=== PATIENT | female | born 1945 | race Caucasian/White ===

== ENCOUNTER 2016-11-24 11:08 | Day surgery (SDC) | payer MEDICARE, MEDICAID ==
[~2016-11-24 11:08] MED LIST: Acetaminophen TAB* 325 MG PO PRN; Buffered Lidocaine 0.9% SYRIN* 5 ML/SYR SYRINGE INTRADERM ONE
[2016-11-24] MEDS ORDERED: Midazolam* 1 MG/ML 2 ML VIAL (2 MG) ONE (13:00)
[2016-11-24] MEDS ORDERED: fentaNYL* 50 MCG/ML 2 ML VIAL (100 MCG VIAL) ONE (13:19)
[2016-11-24 13:52] VITALS: BP 131/78
[2016-11-24] MEDS ORDERED: Neomycin/Polymy/Dex OPTH.SUSP* MAXITROL 0.1% 5 ML ONE (14:47)
[2016-11-24] MEDS ORDERED: Flurbiprofen 0.03% OPTH.SOL* 2.5 ML BTL ONE (14:47)
[2016-11-24] MEDS ORDERED: Cyclopentolate 1% OPTH.SOL* 2 ML BTL ONE (14:47)
[2016-11-24] MEDS ORDERED: Lidocaine 1% MPF* 2 ML VIAL ONE (14:47)
[2016-11-24] MEDS ORDERED: Phenylephrine 2.5% OPTH.SOL* 2 ML BTL ONE (14:47)
[2016-11-24] MEDS ORDERED: Lidocaine 2% EPI 1:200000 MPF* 20 ML VIAL ONE (14:47)
[2016-11-24] MEDS ORDERED: Povidone Iodine 5% OPTH* 30 ML BTL ONE (14:47)
[2016-11-24] MEDS ORDERED: acetaZOLAMIDE TAB* 250 MG ONE (14:47)
[2016-11-24] MEDS ORDERED: Proparacaine 0.5% OPHTH.SOL* 15 ML BTL ONE (14:48)
[2016-11-24] MEDS ORDERED: Buffered Lidocaine 0.9% SYRIN* 5 ML/SYR SYRINGE ONE (14:48)
--- NOTE | 2016-11-25 11:10 | OP ---
DATE OF OPERATION: 11/24/16 - [facility] DATE OF : 49 SURGEON: Fernie Beltrán M.D. PREOPERATIVE DIAGNOSIS: Cataract, right eye. POSTOPERATIVE DIAGNOSIS: Cataract, right eye. OPERATIVE PROCEDURE: Phacoemulsification, right eye with IOL. DESCRIPTION OF PROCEDURE: The patient was brought to the operating room after being given 1/2% Alcaine with epinephrine drops in the preoperative area. The eye was prepped and draped in the usual sterile fashion. Sterile drape and eyelid speculum were placed. Again, topical 1/2% Alcaine with epinephrine was given. A paracentesis incision was made at the 9 o'clock position with the No.75 blade. Clear cornea incision 2.2 x 2.2-mm was created at the 12 o'clock position starting at the anterior limbus using the 2.2-mm keratome. The anterior chamber was irrigated with 0.4 mL of 1% non-preservative intracameral lidocaine and filled with DisCoVisc. A capsulorrhexis was completed using the cystotome and the Utrata forceps. Hydrodissection was performed with balanced salt solution. The lens nucleus was removed with the Phacoemulsification handpiece without incident. Cortex was removed with the irrigation-aspiration handpiece. The capsular bag was re-inflated using DisCoVisc and an SN60WF 18.5 implant was inserted with the shooter. The irrigation-aspiration handpiece was used to remove all residual DisCoVisc. The eye was refilled with balanced salt solution and the wound checked and found to be watertight. Topical Maxitrol drops were given. [id number]/[facility] #: [id number] MTDD
== END 2016-11-24 14:13 | disposition home or self-care (01) ==
LOC: OREAST 11:08
PROVIDERS: ATTEND Specialist
DX: H25.811 Combined forms of age-related cataract, right eye (principal); H40.013 Open angle with borderline findings, low risk, bilateral; E11.9 Type 2 diabetes mellitus without complications; F17.210 Nicotine dependence, cigarettes, uncomplicated; I10 Essential (primary) hypertension
CPT/HCPCS: A9270-GY; J2250; J3010; V2632

== ENCOUNTER 2016-12-01 07:10 | Day surgery (SDC) | payer MEDICARE, MEDICAID ==
[2016-12-01] MEDS ORDERED: Lidocaine 1% MPF* 2 ML VIAL ONE (07:26)
[2016-12-01] MEDS ORDERED: Flurbiprofen 0.03% OPTH.SOL* 2.5 ML BTL ONE (07:26)
[2016-12-01] MEDS ORDERED: Phenylephrine 2.5% OPTH.SOL* 2 ML BTL ONE (07:26)
[2016-12-01] MEDS ORDERED: Cyclopentolate 1% OPTH.SOL* 2 ML BTL ONE (07:26)
[2016-12-01] MEDS ORDERED: acetaZOLAMIDE TAB* 250 MG ONE (07:26)
[2016-12-01] MEDS ORDERED: Proparacaine 0.5% OPHTH.SOL* 15 ML BTL ONE (07:26)
[2016-12-01] MEDS ORDERED: Povidone Iodine 5% OPTH* 30 ML BTL ONE (07:26)
[2016-12-01] MEDS ORDERED: Neomycin/Polymy/Dex OPTH.SUSP* MAXITROL 0.1% 5 ML ONE (07:26)
[2016-12-01] MEDS ORDERED: Buffered Lidocaine 0.9% SYRIN* 5 ML/SYR SYRINGE ONE (07:26)
[2016-12-01] MEDS ORDERED: Midazolam* 1 MG/ML 5 ML VIAL (5 MG) ONE (08:41)
[2016-12-01] MEDS ORDERED: fentaNYL* 50 MCG/ML 2 ML VIAL (100 MCG VIAL) ONE (08:51)
[2016-12-01 09:57] VITALS: BP 159/94
--- NOTE | 2016-12-01 16:37 | OP ---
DATE OF OPERATION: 12/01/16 - [facility] DATE OF : 49 SURGEON: Fernie Beltrán M.D. PREOPERATIVE DIAGNOSIS: Cataract, left eye. POSTOPERATIVE DIAGNOSIS: Cataract, left eye. OPERATIVE PROCEDURE: Phacoemulsification, left eye, with IOL. DESCRIPTION OF PROCEDURE: The patient was brought to the operating room after being given 1/2% Alcaine with epinephrine drops in the preoperative area. The eye was prepped and draped in the usual sterile fashion. Sterile drape and eyelid speculum were placed. Again, topical 1/2% Alcaine with epinephrine was given. A paracentesis incision was made at the 3 o'clock position with the No.75 blade. Clear cornea incision 2.2 x 2.2-mm was created at the 6 o'clock position starting at the anterior limbus using the 2.2-mm keratome. The anterior chamber was irrigated with 0.4 mL of 1% non-preservative intracameral lidocaine and filled with DisCoVisc. A capsulorrhexis was completed using the cystotome and the Utrata forceps. Hydrodissection was performed with balanced salt solution. The lens nucleus was removed with the Phacoemulsification handpiece without incident. Cortex was removed with the irrigation-aspiration handpiece. The capsular bag was re-inflated using DisCoVisc and an SN60WF 19.5 implant was inserted with the shooter. The irrigation-aspiration handpiece was used to remove all residual DisCoVisc. The eye was refilled with balanced salt solution and the wound checked and found to be watertight. Topical Maxitrol drops were given. [id number]/[facility] #: [id number] MTDD
== END 2016-12-01 09:53 | disposition home or self-care (01) ==
LOC: OREAST 07:10
PROVIDERS: ATTEND Specialist
DX: H25.812 Combined forms of age-related cataract, left eye (principal); H40.013 Open angle with borderline findings, low risk, bilateral; E11.9 Type 2 diabetes mellitus without complications; Z79.84 Long term (current) use of oral hypoglycemic drugs; Z72.0 Tobacco use
CPT/HCPCS: A9270-GY; J2250; J3010; V2632

== ENCOUNTER 2019-04-05 10:59 | Observation (INO) | payer MEDICARE, MEDICAID ==
[2019-04-05] MEDS ORDERED: NS 0.9% 1000 ML** 1,000 ML IV ONE (11:02)
--- NOTE | 2019-04-05 11:13 | ED ---
Neurological HPI - HPI Summary HPI Summary: This patient is a 74 year old F with a history of DM, tobacco use, and Pearce palsy presenting to ED with a chief complaint of right side facial droop and lateral right eye deviation since yesterday. Per patients sister, when patient woke up this morning at 0930, she had the right eye wander. Patients sister states that the patient had this yesterday, but not as bad. Patients sister reports that the patient is confused, which is not her baseline. For example, the patient said she hasnt been to a doctor in ages, which is not true per the patients sister. Patient is also shaky, but she is diabetic and has not eaten anything today. Patient reports tingling in the right eye. Patient states she does not remember how this feels compared to her previous Pearce palsy as it was many years ago. She denies numbness, weakness, and tingling in the bilateral upper and lower extremities. Patient denies normally having trouble with her eyes. The patient rates the pain 0/10 in severity. Symptoms aggravated by nothing. Symptoms alleviated by nothing. Ebenezer avila called at 1059. Dr. Bourne at bedside at 1100. - History of Current Complaint Stated Complaint: POSS STROKE PER PT DAUGHTER Hx Obtained From: Patient, Family/Cooking Chef - Sister Hx Last Menstrual Period: n/a Onset/Duration: Gradual Onset, Started days ago - Yesterday, Still Present Timing: Constant Onset Severity: Mild Current Severity: Mild Pain Intensity: 0 Pain Scale Used: 0-10 Numeric Character: Other: - Lateral right eye deviation Aggravating: Nothing Alleviating: Nothing Associated Signs and Symptoms: Positive: Confusion - Allergy/Home Medications Allergies/Adverse Reactions: Allergies Allergy/AdvReac Type Severity Reaction Status Date / Time codeine Allergy GI Upset Verified 04/05/19 11:32 diazepam [From Valium] Allergy GI Upset Verified 04/05/19 11:32 sulfamethoxazole Allergy Rash Verified 04/05/19 11:32 [From Bactrim] trimethoprim [From Bactrim] Allergy Rash Verified 04/05/19 11:32 Home Medications: Home Medications Nateglinide 1 tab PO TID 04/05/19 [History Confirmed 04/05/19] Umeclidin/Vilant 62.5 MDI(NF) [ANORO 62.5/25 Ellipta DEVICE (NF)] 1 inh INH DAILY 04/05/19 [History Confirmed 04/05/19] amLODIPine TAB* [Norvasc 5 mg TAB*] 10 mg PO DAILY 04/05/19 [History Confirmed 04/05/19] PMH/Surg Hx/FS Hx/Imm Hx Endocrine/Hematology History: Reports: Hx Diabetes - type 2 Cardiovascular History: Reports: Hx Hypertension Respiratory History: Reports: Other Respiratory Problems/Disorders - Emphysema GI History: Reports: Hx Diverticulosis, Hx Hiatal Hernia, Other GI Disorders - diverticulitis - none now History: Reports: Other Problems/Disorders - neurogenic bladder Musculoskeletal History: Reports: Hx Arthritis - RA, osteoarthritis Sensory History: Reports: Hx Cataracts - bilat, Hx Contacts or Glasses - glasses , Hx Glaucoma - borderline Denies: Hx Hearing Aid Opthamlomology History: Reports: Hx Cataracts - bilat, Hx Contacts or Glasses - glasses, Hx Glaucoma - borderline Neurological History: Reports: Hx Nerve Disease - diabetic neuropathy feet, Other Neuro Impairments/Disorders - schizophrenia, champagne's palsy Psychiatric History: Reports: Hx Depression - Cancer History Hx Chemotherapy: No - Surgical History Surgery Procedure, Year, and Place: HERNIA REPAIR x2 , PARTIAL HYSTERECTOMY, CHOLECYSTECOMY Hx Anesthesia Reactions: No - Family History Known Family History: Positive: Other - Cancer - Social History Alcohol Use: None Hx Substance Use: No Substance Use Type: Reports: None Hx Tobacco Use: Yes Smoking Status (MU): Heavy Every Day Tobacco Smoker - 1.5ppd Type: Cigarettes Amount Used/How Often: smoked since 20 years old Review of Systems Eyes: Other - Lateral right eye deviation and tingling Neurological: Other - Confusion, Right-side facial droop Negative: Weakness, Numbness All Other Systems Reviewed And Are Negative: Yes Physical Exam - Summary Physical Exam Summary: Constitutional: Well-developed, Well-nourished, Alert. (-) Distressed Skin: Warm, Dry HENT: Normocephalic; Atraumatic, R eyelid ptosis Eyes: Right eye oculomotor nerve palsy, PERRL. Neck: Musculoskeletal ROM normal neck. (-) JVD, (-) Nuchal rigidity Cardio: Rhythm regular, rate normal, Heart sounds normal; Intact distal pulses; Radial pulses are 2+ and symmetric. (-) Murmur Pulmonary/Chest wall: Effort normal. (-) Respiratory distress, (-) Wheezes, (-) Rales Abd: Soft. (-) Tenderness, (-) Distension, (-) Guarding, (-) Rebound Musculoskeletal: (-) Edema Lymph: (-) Cervical adenopathy Neuro: Alert, Oriented x3, Strength normal, Cranial nerves II-XII (aside from CN III) are grossly intact. SILT, Strength 5/5 BUE and BLE, (-) Dysmetria, (-) Nystagmus. Gait deferred NIH: 1 GCS: 15 Psych: Mood and affect Normal Triage Information Reviewed: Yes Vital Signs On Initial Exam: Initial Vitals Resp BP 29 138/75 04/05/19 11:33 04/05/19 11:33 Vital Signs Reviewed: Yes Procedures - Sedation Patient Received Moderate/Deep Sedation with Procedure: No Diagnostics - Laboratory Result Diagrams: 04/05/19 11:21 04/05/19 11:21 Lab Statement: Any lab studies that have been ordered have been reviewed, and results considered in the medical decision making process. - Radiology CXR Radiology Interpretation Completed By: Radiologist Summary of Radiographic Findings: NO ACTIVE CARDIOPULMONARY DISEASE IS NOTED. Dr. Bourne has reviewed this radiology report. - CT Brain CT CT Interpretation Completed By: Radiologist Summary of CT Findings: No definite intracranial mass or hemorrhage is noted. No significant change is noted since October 08, 2010. Dr. Bourne has reviewed this radiology report. Head/Neck CTA CT Interpretation Completed By: Radiologist Summary of CT Findings: Atherosclerosis at the carotid bulb bilaterally however no significant. stenosis is noted. No evidence of large vessel occlusion. No aneurysmal dilatation or branch occlusion is identified. Dr. Bourne has reviewed this radiology report. Brain CT Interpretation Completed By: Radiologist Summary of CT Findings: No definite intracranial mass or hemorrhage is noted. No significant change is noted since October 08, 2010. Dr. Bourne has reviewed this radiology report. - EKG 1319 Cardiac Rate: NL - 86 BPM EKG Rhythm: Sinus Rhythm Summary of EKG Findings: EKG at 1319 revealed NSR at 86 BPM with T-wave flattening in lead III. Dr. Bourne has reviewed and interpreted this EKG. NIH Scale - NIH Scale Level of Consciousness: Alert/Keenly Responsive Ask Patient the Month and His/Her Age: Both Correct Ask Pt to Open/Close Eyes and Sales Service Supervisor/Release Non-Paretic Hand: Both Correctly Best Gaze (Only Horizontal Eye Movement): Partial Gaze Palsy Visual Field Testing: No Visual Loss Facial Paresis-Pt to Smile & Close Eyes or Grimace Symmetry: Normal/Symmetrical Motor Function - Right Arm: No Drift-Holds 10 Seconds Motor Function - Left Arm: No Drift-Holds 10 Seconds Motor Function - Right Leg: No Drift-Holds 10 Seconds Motor Function - Left Leg: No Drift-Holds 10 Seconds Limb Ataxia-Must be out of Proportion to Weakness Present: Absent Sensory (Use Pinprick to Test Arms/Legs/Trunk/Face): Normal Best Language (Describe Picture, Name Items): No Aphasia Dysarthria (Read Several Words): Normal Extinction and Inattention: No Abnormality Total Score: 1 Re-Evaluation - Re-Evaluation First Eval Re-Evaluation Time: 13:10 Comment: Discussed results with patient. Patient will be admitted to [facility] with dx of cranial nerve III palsy and HTN. Patient understands and agrees with this plan. Course/Dx - Course Course Of Treatment: 74-year-old female with history of diabetes, schizophrenia , Champagne's palsy presents with lateral R eye deviation as well as concern for altered mental status. - NIH stroke scale of 1 for minor gaze palsy, ptosis of R eye. Concern for CN III palsy. CT non con negative, CTA ordered to r/o aneurysm. Plan for permissive HTN, further stroke w/u. - patient AAOx3 on exam no AMS. - [facility] stroke attending consulted. - Diagnoses Provider Diagnoses: Cranial nerve III palsy, Hypertension During the Visit The Following Alert/Code Occurred: Code Green - Physician Notifications Discussed Care Of Patient With: Chapis Ortiz Time Discussed With Above Provider: 11:21 Instructed by Provider To: Other - Radiologist, Dr. Ortiz, called to report negative brain CT. At 1132, discussed patient case with Dr. Michel, neurologist at [place], who agrees it is a cranial nerve III palsy, recommends CTA and stroke work up. At 1311 discussed patient case with Dr. Bonilla, hospitalist, who accepted the patient for admission to [facility]. - Critical Care Time Critical Care Time: 30-74 min - Upon my evaluation, this patient had a high probability of imminent or life-threatening deterioration due to CVA which required my direct attention, intervention, and personal management. I have personally provided 30 minutes of critical care time exclusive of time spent on separately billable procedures. Time includes review of laboratory data, radiology results, discussion with consultants, and monitoring for potential decompensation. Interventions were performed as documented above. Discharge ED - Sign-Out/Discharge Documenting (check all that apply): Patient Departure - Admit - Discharge Plan Condition: Fair Disposition: ADMITTED TO [facility] - Billing Disposition and Condition Condition: FAIR Disposition: Admitted to [facility] - Attestation Statements Document Initiated by Scribe: Yes Documenting Scribe: Maxi Marroquin Provider For Whom Lienibe is Documenting (Include Credential): Kee Bourne MD Scribe Attestation: Maxi Adrian, scribed for Kee Bourne MD on 04/05/19 at 1421. Scribe Documentation Reviewed: Yes Provider Attestation: The documentation as recorded by the scribeMaxi accurately reflects the service I personally performed and the decisions made by Kee chen MD Status of Scribe Document: Viewed
[2019-04-05 11:31] LABS: ABS Basophils 0.1 10^3/ul (0-0.2); ABS Monocytes 0.5 10^3/ul (0-0.8); ABS Neutrophils 6.9 10^3/ul (1.5-7.7); Eosinophil % 0.3 %; Hematocrit 37 % (35-47); Hemoglobin 12.4 g/dL (12.0-16.0); Lymphocyte % 11.9 %; Mean Corpuscular HGB Conc 34 g/dL (31-36); Mean Corpuscular Hemoglobin 27 pg (27-31); Mean Corpuscular Volume 81 fL (80-97); Mean Platelet Volume 6.8 fL (7.4-10.4); Platelet Count 444 10^3/uL (150-450); Red Blood Count 4.53 10^6 /uL (3.70-4.87); Red Cell Distribution Width 16 % (10-15); White Blood Count 8.6 10^3/uL (3.5-10.8)
[2019-04-05 11:42] LABS: Activated Partial Thrombo Time 30.6 seconds (26.0-38.0); INR 0.93 (0.82-1.09)
[2019-04-05 11:50] LABS: Albumin 4.3 g/dL (3.2-5.2); Albumin/Globulin Ratio 1.3 (1-3); BUN/Creatinine Ratio 15.5 (8-20); Calcium 9.9 mg/dL (8.6-10.3); EGFR African American 123.6 (>60); EGFR Non-African American 102.2 (>60); Globulin 3.2 g/dL (2-4); HDL Cholesterol 62.8 mg/dL; Potassium 3.7 mmol/L (3.5-5.0); Total Bilirubin 0.4 mg/dL (0.2-1.0); Total Protein 7.5 g/dL (6.4-8.9)
[2019-04-05 11:52] LABS: Troponin I 0.01 ng/mL (<0.03)
[2019-04-05] MEDS ORDERED: Iodixanol* (CONTRAST) 320 MG/ML 100 ML SDV IV ONE (12:04)
[2019-04-05] MEDS ORDERED: Dextrose 50% VIAL 50 ml IV PUSH PRN (13:30)
[2019-04-05 13:52] LABS: Urine Appearance Cloudy; Urine Bilirubin Negative (Negative); Urine Blood 2+ (Negative); Urine Color Yellow; Urine Glucose Negative (Negative); Urine Ketones Negative (Negative); Urine Nitrite Positive (Negative); Urine Protein Negative (Negative); Urine Specific Gravity 1.025 (1.010-1.030); Urine Urobilinogen Negative (Negative)
[2019-04-05 13:56] LABS: Urine Bacteria Absent (Absent); Urine Red Blood Cell 2+(6-10/hpf) (Absent); Urine Squamous Epithelial Cell Present (Absent); Urine White Blood Cell 2+(11-20/hpf) (Absent)
[2019-04-05] MEDS ORDERED: Aspirin 81 mg CHEW TAB* 81 MG TAB.CHEW PO ONE (13:56)
[2019-04-05 14:01] LABS: TSH (Thyroid Stimulating Horm) 1.8 mcIU/mL (0.34-5.60)
[2019-04-05] MEDS ORDERED: Nicotine Lozenge* mini 2 MG LOZNG.MINI MT PRN (14:11)
[2019-04-05] MEDS ORDERED: Nicotine* 2MG (FRUIT FLAVOR) GUM PO PRN (14:11)
[2019-04-05] MEDS ORDERED: Triamcinolone 0.5% OINT * 15 GM TUBE TOPICAL PRN (14:13)
[2019-04-05] MEDS ORDERED: Temazepam CAP* 15 MG PO PRN (14:13)
--- NOTE | 2019-04-05 14:39 | HP ---
HISTORY AND PHYSICAL: ADDENDUM: MEDICATIONS: Her home medications are as follows: 1. Haloperidol 125 mg IM monthly, last given on 04/02/19. 2. Meloxicam 15 mg daily. 3. Nateglinide 120 mg t.i.d. 4. Ramipril 10 mg daily. 5. Janumet one tab b.i.d. 6. Amlodipine 10 mg daily. 7. Gabapentin 800 mg t.i.d. 8. Nitrofurantoin 50 mg daily. 9. Temazepam 30 mg q.h.s. 10. Anoro Ellipta 1 inhaled daily. [id number]/[facility] #: [id number] MTDD
--- NOTE | 2019-04-05 16:10 | HP ---
MEDICATION ADDENDUM NOW INCLUDED ON THIS REPORT CC: The physicians at [place], [place] * HISTORY AND PHYSICAL: DATE OF ADMISSION: 04/05/19 TIME OF ADMISSION: 2 o'clock p.m. PRIMARY CARE PHYSICIAN: She does not know her PCP's name. CHIEF COMPLAINT: "My eye." HISTORY OF PRESENT ILLNESS: This is a 74-year-old woman with history of developmental delay, type 2 diabetes, and Champagne's palsy which recovered, who has come to the emergency department today after her sister noticed an eye deviation this morning at 9:30 a.m. Her sister did not see her yesterday and Bryanna is not sure if her eye looked this way yesterday, but yesterday she was complaining of watery eyes and then this morning her sister came over to see her around 9:30 and noticed that her right eye was deviated and brought her to the emergency department. Bryanna is distressed about this finding but otherwise has not complaints. She reports no recent illness. She does though think she has had some sinus congestion over the past couple days and a headache. Of note, her sister reports a fall in the driveway 2 weeks ago. Bryanna reports that she tripped over the dog but did not lose consciousness. She has otherwise been herself since that time. Bryanna complains of double vision that is relieved when she closes either eye. She has never had a stroke or heart disease. She also complains of some right eye achiness and feels like she cannot keep it open. PAST MEDICAL HISTORY: 1. Developmental delay. 2. Type 2 diabetes. 3. Diverticulitis. 4. Emphysema. 5. Neurogenic bladder. She self catheterizes b.i.d. PAST SURGICAL HISTORY: She has had hernia repairs. HOME MEDICATIONS: Her nurses currently reconciling the medications, I will update this once that is complete. FAMILY HISTORY: Her dad had colon cancer and her mom had diabetes and heart disease. SOCIAL HISTORY: She smokes between 1 and 3 packs of cigarettes per day. She lives in a cottage on her sister's property. She does not use alcohol or drugs. REVIEW OF SYSTEMS: Positive for feeling off balance but this has been for a long time, years. Positive for sinus congestion, positive for headache. The remainder of review of systems is negative. PHYSICAL EXAMINATION GENERAL: Alert, comfortable female in no distress. VITAL SIGNS: Temperature has not been taken in the emergency department. Heart rate 82, respiratory rate 24, pulse ox 95% on room air, blood pressure 184 /87. HEENT: She has ptosis in her right eyelid but is able to open it with effort. The right eye is laterally deviated. She is able to follow my finger with eye movement in all directions except the right eye is unable to look completely medially. The right pupil is 4 mm and very sluggishly reactive to light. Her peripheral vision is intact. Her vision is accurate. Her face is otherwise symmetric. Oral mucosa is moist. NECK: She has no JVP or adenopathy. CHEST: She is in a regular rate and rhythm with no murmurs. Her lung are clear bilaterally. ABDOMEN: Soft, nontender, nondistended. EXTREMITIES: No rashes, edema or ulcers. NEUROLOGIC: The eye exam is noted as above. The remainder of her neurologic exam is as follows; her upper and lower extremity strength is 5/5 throughout. Her sensation is intact. Her speech is fluent and appropriate. PSYCHIATRIC: She occasionally becomes upset and lashes out at her sister but reorients and calms easily. LABORATORY DATA: White blood cells 8.6, hemoglobin 12.4, platelets 444. INR 0.93. Sodium 134, potassium 3.7, chloride 101, bicarb 23, BUN 9, creatinine 0.58 , glucose 196, lactic acid 1.5. TSH 1.8. LDL 91, cholesterol 172. Troponin 0.01. Urinalysis is positive for nitrite, blood, white blood cells, leuk esterase, and rbc's. IMAGING: A head CTA shows arthrosclerosis at the carotid bulb bilaterally, however, no significant stenosis is noted. No evidence of large vessel occlusion. No aneurysmal dilatation or branch occlusion is identified. Brain CT shows no definite intracranial mass or hemorrhages noted. Chest x-ray shows no active cardiopulmonary disease. EKG shows normal sinus rhythm, normal axis, normal intervals, and no ST or T wave changes. ASSESSMENT AND PLAN: This is a 74-year-old woman with a history of diabetes, developmental delay, psychosis, who presents to the emergency department with right eye deviation. She was last seen well approximately 2 days ago. 1. Third nerve palsy. The emergency department contacted Dr. Michel via telestroke in [place]. He recommended a CT and a CTA which she has already completed and are negative for acute cerebrovascular accident and admission for a stroke workup. At this point, I am still suspicious of an occult cerebrovascular accident given her persistent symptoms and risk factors, and we will order an MRI for tomorrow and I am treating her as such with an aspirin and statin. Alternatively on the differential is also Mark syndrome given the ptosis. The myosis is subtle and difficult to appreciate, however, I think it is possible. Based on her significant smoking history, I am also getting a CT of her chest to rule out apical tumor such as a Pancoast tumor. We will get an echocardiogram tomorrow. I am ordering a B12 level and I am consulting Dr. Corea. We will allow permissive hypertension. 2. Type 2 diabetes. We will put her on a sliding scale while she is in the hospital. 3. Tobacco use. We will offer nicotine replacement therapy if needed. 4. Neurogenic bladder. She self caths at home. We will order a straight cath b.i.d. 5. Developmental delay and history of psychosis. She has Haldol once a month. There is no evidence of disruption at this point and we will not change any intervention. 6. Questionably positive urinalysis. This is difficult to interpret knowing that she straight caths. She has no urinary complaints. So we will await and see what the micro shows. 7. DVT prophylaxis. We will start her on heparin subcutaneously. The plan has been discussed with Bryanna and her sister and they agree with the current plan. DISPOSITION: Admit to [address] [place] [address] for a stroke workup. ADDENDUM: MEDICATIONS: Her home medications are as follows: 1. Haloperidol 125 mg IM monthly, last given on 04/02/19. 2. Meloxicam 15 mg daily. 3. Nateglinide 120 mg t.i.d. 4. Ramipril 10 mg daily. 5. Janumet one tab b.i.d. 6. Amlodipine 10 mg daily. 7. Gabapentin 800 mg t.i.d. 8. Nitrofurantoin 50 mg daily. 9. Temazepam 30 mg q.h.s. 10. Anoro Ellipta 1 inhaled daily. [id number]/[facility] #: [id number]/[facility] #: [id number] [facility]
[2019-04-05] MEDS: Cyanocobalamin TAB* 500 MCG PO SCH (16:27)
[2019-04-05] MEDS: Insulin LISPRO* 1 UNITS UNIT SUBCUT SCH (16:27)
[2019-04-05] MEDS ORDERED: Atorvastatin* 40 MG TAB PO SCH (21:00)
[2019-04-05] MEDS: Gabapentin CAP(*) 400 MG PO SCH (22:07)
[2019-04-06] MEDS: Heparin VIAL(*) 5000 UNITS/ML VIAL (FIVE THOUSAND) SUBCUT SCH ×2 (05:00→13:49)
[2019-04-06] MEDS ORDERED: Aspirin EC TAB* 81 MG TAB.EC PO SCH (09:00)
[2019-04-06] MEDS ORDERED: Nitrofurantoin Macrocrystals* 50 MG CAP PO SCH (09:00)
[2019-04-06] MEDS ORDERED: Tiotropium Brom/Olodaterol MDI INH SCH (09:00)
[2019-04-06] MEDS ORDERED: amLODIPine TAB* 5 MG PO SCH (09:00)
[2019-04-06] MEDS: Insulin LISPRO* 1 UNITS UNIT SUBCUT SCH ×2 (10:21→12:18)
[2019-04-06] MEDS: Gabapentin CAP(*) 400 MG PO SCH (10:23)
[2019-04-06] MEDS: Cyanocobalamin TAB* 500 MCG PO SCH (10:23)
--- NOTE | 2019-04-06 10:41 | ECHO ---
*[facility]* [place] [address] Fax #: [phone] Transthoracic Echocardiogram Patient: Bryanna Alexander : 1945 Study Date: 04/06/2019 Age: 74 Gender: F HR: 87 bpm Height: 62 in /157.5 cm BSA: 1.76 m^2 Weight: 164.7 lb /74.8 kg BMI: 30.2 kg/m^2 *Preventative Maintenance Technician: * Sun Hussein [facility] *Referring Physician: * Denise Benavides *Reading Physician: * Mark Vasquez MD Indications: TIA. History: Vision changes. Risk factors: Current tobacco use. Diabetes mellitus. Conclusions Summary: - Left ventricle: The cavity size is normal. Wall thickness is mildly to moderately increased. Systolic function is normal. The estimated ejection fraction is 55-60%. Wall motion is normal; there are no regional wall motion abnormalities. - Normal cardiac chamber sizes. - Aortic valve: The findings are consistent with mild stenosis. - Atrial septum: A PFO is not demonstrated by color Doppler or agitated saline contrast. - There is no prior echocardiogram available to compare with at this time. Study data: Transthoracic echocardiogram. Procedure: Transthoracic echocardiography was performed. Image quality was fair. A bubble study was performed. Images 1-3. Complete 2D, spectral Doppler, and color flow Doppler. Location: Bedside. Patient status: Inpatient. Patient room number: 443 02. Rhythm: Normal sinus rhythm. Findings Left ventricle: The cavity size is normal. Wall thickness is mildly to moderately increased. Systolic function is normal. The estimated ejection fraction is 55-60%. Wall motion is normal; there are no regional wall motion abnormalities. Doppler parameters are consistent with abnormal left ventricular relaxation (grade 1 diastolic dysfunction). Right ventricle: The cavity size is normal. Systolic function is normal. Left atrium: The atrium is normal in size. Right atrium: The atrium is normal in size. Atrial septum: A PFO is not demonstrated by color Doppler or agitated saline contrast. Mitral valve: The Mitral valve annulus appears calcified. The leaflets are mildly thickened. The findings are consistent with trivial stenosis. There is trace regurgitation. Aortic valve: The valve is trileaflet. The leaflets are mildly thickened. The findings are consistent with mild stenosis. There is no significant regurgitation. Tricuspid valve: There is trace to mild regurgitation. Pulmonic valve: Not well visualized. There is no significant regurgitation. No stenosis. Aorta: The aortic root appears normal. The aortic arch appears normal. Pericardium: There is no significant pericardial effusion. Pulmonary arteries: Not well visualized. Systolic pressure can not be accurately estimated. Systemic veins: Inferior vena cava: The vessel is normal in size. Measurements Left ventricle Value Ref Aortic valve Value Ref TANA, LAX 4.2 cm 3.8 - 5.2 Jasiel diam, ED 2.0 cm ---- ESD, LAX 3.1 cm 2.2 - 3.5 Peak v, S 2.1 m/sec ---- FS, LAX 27 % 27 - 45 VTI, S 40.0 cm ---- PW, ED, LAX (H) 1.1 cm 0.6 - 0.9 Peak grad, S 17.0 mm Hg ---- EF (L) 53 % 54 - 74 LVOT/AV, VTI ratio 0.7 ---- E', lat jasiel, TDI (L) 9.0 cm/sec >=10.0 BETH, VTI 1.70 cm^2 -- -- E/e', lat jasiel, 9 BETH, Vmax 1.80 cm^2 ---- TDI E', med jasiel, TDI (L) 6.2 cm/sec >=7.0 Mitral valve Value Re f E/e', med jasiel, 13 Peak E 0.83 m/sec ---- TDI Peak A 1.14 m/sec ---- E', avg, TDI 7.6 cm/sec Decel time 106 ms ---- E/e', avg, TDI 11 <=14 PHT 94 ms -- -- Mean grad, D 3.0 mm Hg ---- LVOT Value Ref Peak grad, D 8.0 mm Hg ---- Diam, S 1.80 cm Peak E/A ratio 0.7 ---- Area 2.5 cm^2 MVA, PHT 2.3 cm^2 ---- Peak jaky, S 1.5 m/sec VTI, S 26.0 cm Pulmonic valve Value Ref Peak grad, S 9 mm Hg Peak v, S 1.02 m/sec ---- Mean grad, S 5 mm Hg Peak grad, S 4.0 mm Hg ---- Ventricular septum Value Ref Aortic root Value Ref IVS, ED (H) 1.4 cm 0.6 - 0.9 Root diam 2.4 cm <4.0 Right ventricle Value Ref Ascending aorta Value Ref TANA, LAX 2.8 cm AAo AP diam, S 2.1 cm ---- TANA minor ax, A4C 2.9 cm 1.9 - 3.5 mid Aortic arch Value Ref Arch diam 2.3 cm ---- Left atrium Value Ref AP dim, ES (H) 4.10 cm 2.70 - Decending aorta Value Ref 3.80 Lary peak jaky 0.95 m/sec ---- ML dim, A4C 3.7 cm SI dim, A4C 5.2 cm Inferior vena cava Value Ref Vol/bsa, ES, A/L 28 ml/m^2 16 - 34 Diam 1.8 cm ---- Right atrium Value Ref SI dim, ES 4.8 cm 3.4 - 5.3 ML dim, ES, A4C 3.0 cm 2.6 - 4.4 Estimated RAP 8 mm Hg Legend: (L) and (H) anson values outside specified reference range. Prepared and electronically signed by Mark Vasquez MD 04/06/2019 10:41
[2019-04-06 13:04] VITALS: BP 141/76
--- NOTE | 2019-04-06 14:27 | PN ---
Subjective Date of Service: 04/06/19 Length of Stay: 1 Days Neurology is following for stroke. Review of Systems: Denied CP, SOB, or palpitations. Objective Active Medications: Amlodipine Besylate (Norvasc Tab*) 10 mg PO DAILY [facility] Last Admin: 04/06/19 10:23 Dose: 10 mg Aspirin (Aspirin Ec Tab*) 81 mg PO DAILY [facility] Last Admin: 04/06/19 10:23 Dose: 81 mg Atorvastatin Calcium (Lipitor*) 40 mg PO 2100 [facility] Last Admin: 04/05/19 22:07 Dose: 40 mg Cyanocobalamin (Vitamin B12 Tab*) 1,000 mcg PO DAILY [facility] Last Admin: 04/06/19 10:23 Dose: 1,000 mcg Dextrose (Dextrose 50% Vial 50 Ml*) 25 ml IV PUSH .FOR FS < 60 - SS PRN PRN Reason: FS < 60 Gabapentin (Neurontin Cap(*)) 800 mg PO TID [facility] Last Admin: 04/06/19 10:23 Dose: 800 mg Heparin Sodium (Porcine) (Heparin Vial(*)) 5,000 units SUBCUT Q8H [facility] Last Admin: 04/06/19 13:49 Dose: Not Given Insulin Human Lispro (Humalog*) 0 units SUBCUT [facility]; Protocol Last Admin: 04/06/19 12:18 Dose: Not Given Nicotine Polacrilex (Nicotine Gum*) 2 mg PO Q2H PRN PRN Reason: CRAVING Nicotine Polacrilex (Nicotine Lozenge Mini) 2 mg MT Q2H PRN PRN Reason: CRAVING Nitrofurantoin Macrocrystals (Macrodantin*) 50 mg PO QAM [facility] Last Admin: 04/06/19 11:28 Dose: 50 mg Temazepam (Restoril Cap*) 30 mg PO BEDTIME PRN PRN Reason: INSOMNIA Last Admin: 04/05/19 22:36 Dose: 30 mg Tiotropium [place]/Olodaterol (Stiolto Respimat Inh [place] (60 Puff)) 2 puff INH DAILY [facility] Last Admin: 04/06/19 07:21 Dose: 2 puff Triamcinolone Acetonide (Triamcinolone 0.5% Oint *) 1 applic TOPICAL TID PRN PRN Reason: RASH Vital Signs 04/05/19 04/05/19 04/05/19 14:47 14:53 19:15 Temperature 97.7 F 97.5 F 97.8 F Pulse Rate 72 81 78 Respiratory 18 20 20 Rate Blood Pressure 158/90 141/56 153/78 (mmHg) O2 Sat by Pulse 95 99 94 Oximetry 04/05/19 04/05/19 04/05/19 20:00 21:00 22:07 Temperature Pulse Rate Respiratory 20 20 18 Rate Blood Pressure (mmHg) O2 Sat by Pulse 94 Oximetry 04/05/19 04/06/19 04/06/19 23:15 00:15 01:00 Temperature 98.3 F Pulse Rate 74 60 Respiratory 20 18 Rate Blood Pressure 149/88 (mmHg) O2 Sat by Pulse 94 Oximetry 04/06/19 04/06/19 04/06/19 03:15 05:00 07:15 Temperature 98.0 F 98.1 F Pulse Rate 86 64 73 Respiratory 16 20 Rate Blood Pressure 121/58 (mmHg) O2 Sat by Pulse 95 97 Oximetry 04/06/19 04/06/19 10:23 12:05 Temperature 97.9 F Pulse Rate 70 Respiratory 20 22 Rate Blood Pressure 141/76 (mmHg) O2 Sat by Pulse 96 Oximetry Intake and Output Last 24 Hours 04/04/19 04/05/19 04/06/19 04/07/19 06:59 06:59 06:59 06:59 Intake Total 1920 640 Output Total 1000 Balance 920 640 Weight 168 lb Intake: Oral 1920 640 Output: Lakhani 500 Straight Cath 500 Other: # Bowel Movements 1 Estimated Stool Amount Small # Voids 8 Oxygen Devices in Use Now: None Neurology Exam: General: Well nourished, well developed, and in no acute distress HEENT: Normocephelic/atraumatic, sclera anicteric, mucous membranes moist Neck: Supple Chest: Clear to auscultation bilaterally Cardiovascular: Regular rate and rhythm without murmurs, rubs, gallops Abdomen: Soft, non-tender/non-distended Extremities: No clubbing, cyanosis, or edema Neurological Findings: Awake, alert, and oriented to person, place, and time. Speech: fluent without dysarthria, repetition intact Cranial Nerve: PERRL, EOM intact, VFF, no nystagmus, face symmetric bilaterally , facial sensation intact, hearing intact to finger rub bilaterally, palate elevates symmetrically, tongue midline, SCM and Trapezius s/s. Motor: s/s throughout, proximal and distal extremities x4 tone/bulk normal Sensation: intact to LT/PP bilaterally upper and lower extremities Deep Tendon Reflex: 2+ symmetric in the upper/lower extremities, Babinski - down going Finger to nose, rapid alternating movements intact without tremor, no dysdiadochokinesia Gait: intact with good arm swing and stride Result Diagrams: 04/05/19 11:21 04/05/19 11:21 Microbiology and Other Data: Microbiology 04/05/19 13:26 Urine Culture - Preliminary Urine Escherichia Coli
--- NOTE | 2019-04-06 16:00 | CONS ---
NEUROLOGY CONSULTATION NOTE: DATE OF CONSULT: 04/06/19 CONSULTING PROVIDER: Dr. Shivani Bonilla. REASON FOR CONSULT: Cranial nerve palsy. CHIEF COMPLAINT: "I can't move my right eye." HISTORY OF PRESENT ILLNESS: Ms. Bryanna Alexander is a 74-year-old female with history of reported schizoaffective disorder, depression, developmental delay, who is accompanied by her sister at bedside, who developed sudden onset of double vision, retroorbital pain, and drooping of the eye on the right. The patient woke up with the symptoms. She woke up approximately 9:30-10 a.m. on . She was last known well on 04/04/19, but there were not any witnesses around, but the patient did recognize her symptoms yesterday. She did not have the symptoms on Tuesday night. The patient denied any focal weakness or paresthesias. She denied any headaches. Symptoms were sudden onset. She initially noted that she had tearing of the right eye, then when she looked in the mirror she could not see out of the right eye because it was blocked by her eyelid. The patient did have a fall a few weeks ago where she tripped over her dog, but did not lose consciousness. The patient has a patch on the right eye. NIH Stroke Scale 1 for eye deviation, although this is monocular involving the extraocular muscles instead of the actual cortex. Please note that the patient has also symptoms of tremors for the past more than 1 year. The tremors have not worsened. The tremors were thought to be related to antipsychotic therapy. The patient was evaluated by the [facility] Telestroke and was deemed not a candidate for IV tPA. PAST MEDICAL HISTORY: Reported schizoaffective disorder and depression, she receives Haldol injections monthly; type 2 diabetes mellitus; diverticulitis; emphysema; neurogenic bladder, she self catheterizes. The patient has a history of Champagne's palsy x2. PAST SURGICAL HISTORY: Hernia repair. HOME MEDICATIONS: 1. Ramipril 10 mg p.o. in the morning. 2. Temazepam 30 mg p.o. at bedtime. 3. Sitagliptin/metformin 1 tab p.o. b.i.d. 4. Gabapentin 800 mg p.o. t.i.d. 5. Nitrofurantoin 50 mg p.o. in the morning. 6. Meloxicam 15 mg in the morning. 7. Haloperidol 125 mg IM monthly injections. 8. Betamethasone 1 application topical t.i.d. 9. Amlodipine 10 mg p.o. daily. 10. Nateglinide 1 tablet p.o. t.i.d. 11. Anoro 1 inhaled daily. ALLERGIES: Include CODEINE, DIAZEPAM, SULFAMETHOXAZOLE and TRIMETHOPRIM. FAMILY HISTORY: Her dad had colon cancer. Mother of complications of diabetes and heart disease. SOCIAL HISTORY: The patient smokes 1 to 3 packs of cigarettes per day since she was 20 years of age. She lives in a cottage with her sister. She denied any alcohol use. REVIEW OF SYSTEMS: A 12-point review of systems was obtained and otherwise negative except for what was mentioned in the HPI. PHYSICAL EXAM: Vitals: Temperature of 97.9, pulse of 70, respiratory rate of 22, oxygen saturation of 96%, blood pressure of 141/76. General: Well- nourished, well- developed, overweight female, in no acute distress. She is very pleasant. Head: Atraumatic, normocephalic without any obvious abnormalities. Neck is supple and symmetrical without any carotid bruits. Eyes : Conjunctivae/corneas are clear. Cardiovascular: Regular rate and rhythm with normal S1, S2. Respiratory: Clear to auscultation bilaterally with no wheezing or rhonchi. Extremities: Normal range of motion with no cyanosis or edema. No hammertoes. Psych: Affect is flat with slightly depressed mood. She is able to communicate and verbalize a detailed history. Neurological Examination: Mental Status: Awake, alert, and oriented to person, place, time , and general circumstances. Speech and language including repetition, comprehension, and fluency were assessed and found to be normal. The patient has mild psychomotor slowing. Cranial Nerves: Pupils are equal, round, and reactive to light, although there is mild anisocoria where the right pupil which is reactive is measuring 5 mm and constricts to 3 mm while the left pupil measures 4 mm and constricts to 2 mm. The patient has severe right-sided ptosis with nearly the entire eye closed. With effort, she is able to partially open the right eye. On primary gaze, there is down-nguyen abduction of the right eye. She has weakness to right adduction and weakness with mostly inferomedial gaze. Confrontation testing is normal. Sensation is intact on the face. Symmetrical smile bilaterally. Tongue is symmetric and midline with no atrophy or fasciculation. Motor Examination: 5/5 strength in the upper and lower extremities bilaterally. Tone is normal throughout. Sensation is intact throughout. Reduced vibration at the toes to 5 seconds on the right and 6 seconds on the left. Distal to proximal sensory gradient up to the ankles bilaterally to light touch. Coordination: Normal [id number] and heel-to- baron testing bilaterally. Gait: The patient has a normal stance with slightly wide based gait. Reflexes 1+ throughout and symmetric bilaterally. DIAGNOSTIC STUDIES/LAB DATA: WBC is 8.6, hemoglobin of 12.5, hematocrit of 37, platelet count of 444. INR is 0.93. Sodium of 134, potassium of 3.7, chloride of 101, BUN of 9, creatinine is 0.58, glucose of 196, lactic acid of 1.5. Vitamin B12 is 242. TSH is 1.8. Total cholesterol 172. Urinalysis positive for pyuria where she has positive nitrites, trace leukocyte esterase, 2+ urine wbc's. CT of the head without contrast showed no evidence of acute intracranial abnormality. CTA head and neck showed no evidence of large vessel occlusion, aneurysms, or dissection. There is atherosclerotic disease at the carotid bulb bilaterally with no significant stenosis noted. Transthoracic echo completed on 04/05/19 showed no PFO with normal ejection fraction of 55% to 60%. MRI of the brain completed on 04/05/19 showed minor microvascular changes without evidence of acute infarct or mass effect. However, when I reviewed the DWI sequence, there seems to be a tiny less than 2 mm area of restricted diffusion in the ventral midbrain on the right with similar focus of correlation to ADC mapping in the same region. ASSESSMENT AND RECOMMENDATIONS: Ms. Bryanna Alexander is a 74-year-old type 2 diabetic, who presented with sudden onset partial third nerve palsy on the right consistent with diabetic third nerve palsy. The majority of these cases, approximately 50%, are related to ischemic cranial nerve III palsy. Usually, the risk factors include in elderly patient with hypertension and diabetes. The patient has all of those risk factors in addition to chronic excessive tobacco abuse. Interestingly, she has severe ptosis and had ocular retroorbital pain, which also is consistent with ischemic cranial nerve III palsy. However, there maybe also a fascicular lesion in the ventral midbrain that I am able to see, which usually would manifest with weakness, ataxia, tremors and bradykinesia. The patient has been complaining of being unsteady and definitely has tremors and bradykinesia, but this was related to her chronic antipsychotic therapy use. She has had symptoms of parkinsonism in the past prior to this admission. The patient was adherent to aspirin. She was also taking statin therapy. NIH Stroke Scale of 0 to 1. She was never a candidate for IV tPA or mechanical thrombectomy. Telestroke was done on this case and not reviewed as I do not have any available records. The patient was also found to have a urinary tract infection. Defer treatment of the urinary tract infection to the primary team. In the meantime what I recommend is making sure that the patient does not patch the weak eye that is ptotic because it will become more weak and she will not recover appropriately. I encouraged her to make sure she switches and mostly covers the left eye which is the good eye when she is experiencing double vision. Furthermore, we should start her on dual antiplatelet therapy for 21 days. Discontinue aspirin on 04/26/19. Continue Plavix 75 mg daily thereafter. I encouraged the patient to stop smoking immediately. Secondary stroke prevention was discussed in detail. No need for PT/OT/FORK OPERATOR as the patient is ambulatory and independent. She has no evidence of focal weakness. We will follow up with the patient in 6 weeks for further evaluation of her parkinsonism that is most likely secondary to antipsychotic therapy. We discussed fall precautions. The patient should see an brick layer within 3 to 4 weeks. If her double vision persists, she may be a candidate for prism lenses. [id number]/[facility] #: [id number] [facility] HOSPITALJulio
--- NOTE | 2019-04-06 20:39 | DS ---
CC: Cris Carreon NP; Benjamin Barksdale MD DISCHARGE SUMMARY: DATE OF ADMISSION: 04/05/19 DATE OF DISCHARGE: 04/06/19 PRIMARY CARE: Cris Carreon NP, in [place]. 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 SECONDARY DIAGNOSES: 1. Type 2 diabetes. 2. Developmental delay with psychotic features. 3. Emphysema. 4. History of diverticulitis. 5. Neurogenic bladder, dependent on self-catheterization twice a day. 6. E. coli urinary tract infection. 7. Hypertension. 8. Osteoarthritis. 9. Tobacco abuse. MEDICATIONS ON DISCHARGE: 1. Amlodipine 10 mg p.o. daily. 2. Betamethasone valerate 0.1% ointment to affected areas as needed daily. 3. Gabapentin 800 mg p.o. t.i.d. 4. Haloperidol 125 mg IM monthly. 5. Meloxicam 15 mg p.o. q.a.m. p.r.n. for arthritis pain. 6. Nateglinide 1 tab p.o. t.i.d. with meals. 7. Nitrofurantoin 50 mg p.o. q.a.m. 8. Ramipril 10 mg p.o. q.a.m. 9. Sitagliptin/metformin 50 mg/1000 mg 1 tab p.o. b.i.d. 10. Temazepam 30 mg p.o. at bedtime. 11. Anoro Ellipta 1 inhalation daily. 12. Aspirin 81 mg p.o. daily to continue for 3 weeks only and Plavix to continue indefinitely. 13. Atorvastatin 40 mg p.o. q.p.m. 14. Clopidogrel 75 mg p.o. daily. 15. Cyanocobalamin 1000 mcg p.o. daily. 16. Nicotine gum 2 mg q.2 hours p.r.n. 17. Nicotine patch 21 mg topically q.22 hours. BAG MACHINE OPERATOR: Dr. Corea of neurology. PROCEDURES: None. HOSPITAL COURSE: A 74-year-old woman with multiple vascular risk factors including diabetes and toba sales engineer account manager abuse presented with acute onset of right eye lateral deviation and ptosis. There was a degree o f myosis as well. Initial differential included Mark syndrome as well as third nerve palsy due to a small-vessel stroke. Initial head CT was negative for infarct or bleed. CT angiogram was also comp leted in the emergency department which showed no aneurysmal dilatation, but did show some atheroscle rosis in the carotid bulb without any tight stenosis. Chest x-ray in the emergency room also showed no infiltrates or effusions and MRI of the brain completed in the first 24 hours showed some microvas cular change, but no specific infarct to correlate with the patient's neurologic findings. Because o f the concern about Mark syndrome and its association with apical lung tumors, the patient had a CT of the chest without contrast that showed no pleural fluid, nodules, or masses. The patient was seen in consultation by telestroke in [place] as well as Dr. Corea. The impression of neurology is that the patient has had a small stroke affecting the third cranial nerve on the rig ht. Dr. Corea felt that this was not a classic Mark syndrome as the patient did not have full myos is. There was some reversibility of this. Dr. Corea also noticed some parkinsonism, which he related likely to the patient's long-term antipsyc hotic therapy. It is felt that the patient should be discharged on dual antiplatelet therapy for 21 days and then continue on Plavix alone. She may have some improvement in her oculomotor muscles as t he weeks passed. He did not recommend patching the weak eye, but recommended patching the other eye if she is bothered by double vision. The patient should also be seen with Dr. Barksdale of [facility] for followup within a few weeks. She was also recommended to see her primary care doctor within 1 week of discharge. DISPOSITION: Home. DIET: Diabetic. ACTIVITY: As tolerated. STATUS: Observation. CONDITION: Fair. The patient was counseled on tobacco cessation during the discharge process and provided with a patch and gum prescription. [id number]/[facility] #: [id number]
== END 2019-04-06 14:50 | disposition home or self-care (01) ==
LOC: ED 10:59 → MEDTELE 13:20
PROVIDERS: ADMIT Internal Medicine; ATTEND Internal Medicine
DX: H49.01 Third [oculomotor] nerve palsy, right eye (principal); I63.9 Cerebral infarction, unspecified; R62.50 Unspecified lack of expected normal physiological development in childhood; J43.9 Emphysema, unspecified; N39.0 Urinary tract infection, site not specified; B96.20 Unspecified Escherichia coli [E. coli] as the cause of diseases classified elsewhere; K57.92 Diverticulitis of intestine, part unspecified, without perforation or abscess without bleeding; N31.9 Neuromuscular dysfunction of bladder, unspecified; N39.498 Other specified urinary incontinence; I10 Essential (primary) hypertension; M19.90 Unspecified osteoarthritis, unspecified site; F17.210 Nicotine dependence, cigarettes, uncomplicated; Z79.82 Long term (current) use of aspirin; Z79.899 Other long term (current) drug therapy
CPT/HCPCS: 36415; 70450; 70496; 70498; 70551; 71045; 71250; 80053; 80061; 81003; 81015; 82607; 83036; 83605; 84443; 84484; 85025; 85610; 85730; 87077; 87086; 87186; 93005; 93306; 94640; 96360; 96361; 96372; 97530; 99285; A9270-GY; G0378; G8978-GP-CH; G8979-GP-CH; G8980-GP-CH; J1644; J3535; Q9967

== ENCOUNTER 2020-12-23 19:05 | Inpatient (IN) ==
[2020-12-23 20:09] LABS: ABS Lymphocytes 0.8 10^3/ul (1.0-4.8); ABS Monocytes 0.8 10^3/ul (0-0.8); ABS Neutrophils 16.2 10^3/ul (1.5-7.7); Eosinophil % 0.1 %; Hematocrit 39 % (35-47); Hemoglobin 13.1 g/dL (12.0-16.0); Lymphocyte % 4.7 %; Mean Corpuscular HGB Conc 34 g/dL (31-36); Mean Corpuscular Hemoglobin 31 pg (27-31); Mean Corpuscular Volume 93 fL (80-97); Mean Platelet Volume 7.1 fL (7.4-10.4); Platelet Count 476 10^3/uL (150-450); Red Blood Count 4.24 10^6 /uL (3.70-4.87); Red Cell Distribution Width 14 % (10-15); White Blood Count 17.9 10^3/uL (3.5-10.8)
[2020-12-23 20:19] LABS: INR 1.12 (0.86-1.15)
[2020-12-23] MEDS ORDERED: Lactated Ringers 1000 ml BAG IV.FLUID IV ONE (20:23)
[2020-12-23 20:26] LABS: ALT 10 U/L (7-52); AST 9 U/L (13-39); Albumin 3.3 g/dL (3.2-5.2); Albumin/Globulin Ratio 0.9 (1-3); Alkaline Phosphatase 94 U/L (35-149); Blood Urea Nitrogen 64 mg/dL (6-24); Calcium 10.2 mg/dL (8.6-10.3); Chloride 88 mmol/L (101-111); EGFR African American 32.7 (>60); EGFR Non-African American 27.1 (>60); Globulin 3.8 g/dL (2-4); Glucose 312 mg/dL (70-100); Total Protein 7.1 g/dL (6.4-8.9)
[2020-12-23 20:30] LABS: Anion Gap 18 mmol/L (2-11); CO2 Carbon Dioxide 10 mmol/L (22-32); Potassium 5.1 mmol/L (3.5-5.0); Sodium 116 mmol/L (135-145)
[2020-12-23 20:51] LABS: Alcohol, S < 13 mg/dL (<10)
[2020-12-23] MEDS ORDERED: cefTRIAXone 1 gm/50 mL NS BAG 1 GM/50 ML BAG IV ONE (20:55)
[2020-12-23 21:14] LABS: Urine Appearance Turbid; Urine Bilirubin Negative (Negative); Urine Blood 3+ (Negative); Urine Chloride Concentration 65 mmol/L; Urine Color Yellow; Urine Glucose 2+(150 mg/dL) (Negative); Urine Ketones Negative (Negative); Urine Nitrite Negative (Negative); Urine Protein 2+(100 mg/dL) (Negative); Urine Sodium Concentration 76 mmol/L; Urine Urobilinogen Negative (Negative)
[2020-12-23 21:27] LABS: Urine Bacteria 3+ (Absent); Urine Red Blood Cell 3+(>10/hpf) (Absent); Urine White Blood Cell 3+(>20/hpf) (Absent); Urine Yeast Present (Absent)
[2020-12-23] MEDS ORDERED: Dextrose 50% Syringe 50 ml 25 GM/50 ML SYRINGE IV PUSH PRN (21:43)
[2020-12-23] MEDS ORDERED: Lactated Ringers 1000 ml BAG 1,000 ML IV SCH (22:00)
[2020-12-23] MEDS: Heparin 5000 UNITS/ML 1 mL VIAL SUBCUT SCH (22:49)
[2020-12-24 00:58] LABS: Blood Urea Nitrogen 60 mg/dL (6-24); C Reactive Protein 187.98 mg/L (<8.01); CO2 Carbon Dioxide 15 mmol/L (22-32); Calcium 9.2 mg/dL (8.6-10.3); Chloride 91 mmol/L (101-111); EGFR African American 43.5 (>60); Glucose 261 mg/dL (70-100); Potassium 4.3 mmol/L (3.5-5.0)
[2020-12-24 01:02] LABS: Troponin I 0.03 ng/mL (<0.03)
[2020-12-24 01:03] LABS: Anion Gap 12 mmol/L (2-11); Sodium 118 mmol/L (135-145)
[2020-12-24] MEDS ORDERED: Lactated Ringers 1000 ml BAG 1,000 ML IV ONE (01:30)
[2020-12-24 04:39] LABS: ABS Lymphocytes 0.6 10^3/ul (1.0-4.8); ABS Monocytes 0.7 10^3/ul (0-0.8); ABS Neutrophils 10.2 10^3/ul (1.5-7.7); Eosinophil % 0.4 %; Hematocrit 31 % (35-47); Hemoglobin 10.9 g/dL (12.0-16.0); Mean Corpuscular HGB Conc 35 g/dL (31-36); Mean Corpuscular Hemoglobin 32 pg (27-31); Mean Corpuscular Volume 91 fL (80-97); Nucleated Red Blood Cells % 0.1; Platelet Count 336 10^3/uL (150-450); Red Blood Count 3.43 10^6 /uL (3.70-4.87); Red Cell Distribution Width 14 % (10-15); White Blood Count 11.5 10^3/uL (3.5-10.8)
[2020-12-24 04:49] LABS: Calcium 8.7 mg/dL (8.6-10.3); Magnesium 1.5 mg/dL (1.9-2.7); Potassium 4.2 mmol/L (3.5-5.0)
[2020-12-24 04:55] LABS: EGFR African American 62.2 (>60); EGFR Non-African American 51.4 (>60)
[2020-12-24] MEDS: Heparin 5000 UNITS/ML 1 mL VIAL SUBCUT SCH ×2 (05:44→12:21)
[2020-12-24] MEDS ORDERED: Magnesium Sulfate IV 3 GM in NS 0.9% 100 ml BAG 100 ML IVPB ONE (08:09)
[2020-12-24] MEDS ORDERED: NS 0.9% 1000 ml BAG 1,000 ML IV ONE (08:12)
[2020-12-24] MEDS: Mometasone/Formoter 200/5 MDI INH SCH ×2 (08:14→19:40)
[2020-12-24] MEDS: NS 0.9% 1000 ml BAG 1,000 ML IV SCH ×2 (08:58→21:56)
[2020-12-24] MEDS: Aspirin EC 81 mg TAB.EC (enteric coated) PO SCH (09:08)
[2020-12-24] MEDS ORDERED: Perflutren Lipid Microsphere 3 ML VIAL ONE (09:10)
[2020-12-24 13:42] LABS: Calcium 8.9 mg/dL (8.6-10.3); EGFR African American 73.3 (>60); EGFR Non-African American 60.6 (>60); Potassium 3.9 mmol/L (3.5-5.0)
[2020-12-24 15:25] LABS: Troponin I 0.05 ng/mL (<0.03)
[2020-12-24] MEDS ORDERED: Iodixanol (CONTRAST) 320 MG/ML 100 ML SDV IV ONE (17:55)
[2020-12-24 21:48] LABS: Hematocrit 32 % (35-47); Hemoglobin 11.3 g/dL (12.0-16.0)
[2020-12-24] MEDS ORDERED: cefTRIAXone 1 gm/50 mL NS BAG 1 GM/50 ML BAG IVPB SCH (22:00)
[2020-12-25 03:39] LABS: Hematocrit 31 % (35-47); Mean Corpuscular HGB Conc 32 g/dL (31-36); Mean Corpuscular Hemoglobin 30 pg (27-31); Mean Corpuscular Volume 93 fL (80-97); Platelet Count 303 10^3/uL (150-450); Red Blood Count 3.35 10^6 /uL (3.70-4.87); Red Cell Distribution Width 14 % (10-15); White Blood Count 13.1 10^3/uL (3.5-10.8)
[2020-12-25 03:49] LABS: EGFR African American 100.9 (>60); EGFR Non-African American 83.4 (>60); Potassium 3.5 mmol/L (3.5-5.0)
[2020-12-25] MEDS: NS 0.9% 1000 ml BAG 1,000 ML IV SCH ×2 (06:40→14:22)
[2020-12-25 07:00] LABS: ABS Eosinophils 0.1 10^3/ul (0-0.6); ABS Lymphocytes 0.5 10^3/ul (1.0-4.8); ABS Monocytes 0.6 10^3/ul (0-0.8); ABS Neutrophils 9.7 10^3/ul (1.5-7.7); Eosinophil % 0.5 %; Hematocrit 29 % (35-47); Lymphocyte % 4.4 %; Mean Corpuscular HGB Conc 34 g/dL (31-36); Mean Corpuscular Hemoglobin 32 pg (27-31); Mean Corpuscular Volume 93 fL (80-97); Mean Platelet Volume 7.8 fL (7.4-10.4); Platelet Count 267 10^3/uL (150-450); Red Blood Count 3.13 10^6 /uL (3.70-4.87); Red Cell Distribution Width 14 % (10-15); White Blood Count 10.9 10^3/uL (3.5-10.8)
[2020-12-25] MEDS: Mometasone/Formoter 200/5 MDI INH SCH ×2 (07:20→20:42)
[2020-12-25] MEDS: Aspirin EC 81 mg TAB.EC (enteric coated) PO SCH (09:15)
[2020-12-25] MEDS: Meropenem 1 GM PREMIX(*) 1 GM/50 ML BAG IV SCH ×2 (09:15→17:09)
[2020-12-25 09:47] LABS: PCO2 Arterial 25 mmHg (35-45); PO2 Arterial 87 mmHg (80-100)
[2020-12-25] MEDS ORDERED: Nicotine GUM 4MG FRUIT FLAVOR PO PRN (13:46)
[2020-12-25] MEDS: Nicotine PATCH 21 MG/24 HR PATCH TRANSDERM SCH (14:10)
[2020-12-25] MEDS ORDERED: Albuterol/Ipratropium NEB.SOL (2.5/0.5 MG) 3 ML NEB.SOLN INH ONE (20:10)
[2020-12-25 22:15] LABS: Calcium 8.4 mg/dL (8.6-10.3); Potassium 3.5 mmol/L (3.5-5.0)
[2020-12-25 22:21] LABS: EGFR African American 99.2 (>60)
[2020-12-25] MEDS ORDERED: NS 0.9% 500 ml BAG 500 ML IV ONE (23:33)
[2020-12-26] MEDS: Meropenem 1 GM PREMIX(*) 1 GM/50 ML BAG IV SCH ×3 (00:14→16:46)
[2020-12-26] MEDS: Mometasone/Formoter 200/5 MDI INH SCH ×2 (07:12→19:03)
[2020-12-26 09:02] LABS: ABS Lymphocytes 0.8 10^3/ul (1.0-4.8); ABS Monocytes 0.8 10^3/ul (0-0.8); ABS Neutrophils 10.5 10^3/ul (1.5-7.7); Eosinophil % 0.3 %; Hematocrit 30 % (35-47); Hemoglobin 10.4 g/dL (12.0-16.0); Lymphocyte % 6.5 %; Mean Corpuscular HGB Conc 35 g/dL (31-36); Mean Corpuscular Hemoglobin 31 pg (27-31); Mean Corpuscular Volume 90 fL (80-97); Mean Platelet Volume 6.5 fL (7.4-10.4); Platelet Count 338 10^3/uL (150-450); Red Blood Count 3.35 10^6 /uL (3.70-4.87); Red Cell Distribution Width 14 % (10-15); White Blood Count 12.2 10^3/uL (3.5-10.8)
[2020-12-26 09:19] LABS: Albumin 2.4 g/dL (3.2-5.2); Albumin/Globulin Ratio 0.9 (1-3); Calcium 7.9 mg/dL (8.6-10.3); EGFR African American 114.2 (>60); EGFR Non-African American 94.4 (>60); Globulin 2.8 g/dL (2-4); Potassium 3.2 mmol/L (3.5-5.0); Total Bilirubin 0.5 mg/dL (0.2-1.0); Total Protein 5.2 g/dL (6.4-8.9)
[2020-12-26] MEDS: Nicotine PATCH 21 MG/24 HR PATCH TRANSDERM SCH (09:42)
[2020-12-26] MEDS: Aspirin EC 81 mg TAB.EC (enteric coated) PO SCH (09:43)
[2020-12-26] MEDS ORDERED: Potassium Chlor 20 meq TAB.ER PO ONE (12:44)
[2020-12-26] MEDS ORDERED: Sulfamethoxazole/Trimeth IV 500 MG in D5W 500 ml BAG 500 ML IVPB SCH (14:00)
[2020-12-26] MEDS: NS 0.9% 1000 ml BAG 1,000 ML IV SCH ×2 (15:10→23:32)
[2020-12-27] MEDS: Meropenem 1 GM PREMIX(*) 1 GM/50 ML BAG IV SCH ×3 (01:48→19:04)
[2020-12-27] MEDS: Mometasone/Formoter 200/5 MDI INH SCH ×2 (07:28→19:25)
[2020-12-27] MEDS: Nicotine PATCH 21 MG/24 HR PATCH TRANSDERM SCH (08:22)
[2020-12-27] MEDS: Aspirin EC 81 mg TAB.EC (enteric coated) PO SCH (08:23)
[2020-12-27] MEDS ORDERED: KCL 20 MEQ/100 ML IVPREMIX 20 MEQ/100 ML BAG IV SCH (09:00)
[2020-12-27 11:11] LABS: ABS Eosinophils 0.1 10^3/ul (0-0.6); ABS Lymphocytes 0.8 10^3/ul (1.0-4.8); ABS Monocytes 0.8 10^3/ul (0-0.8); Eosinophil % 0.5 %; Hematocrit 32 % (35-47); Hemoglobin 10.6 g/dL (12.0-16.0); Lymphocyte % 6.3 %; Mean Corpuscular HGB Conc 33 g/dL (31-36); Mean Corpuscular Hemoglobin 31 pg (27-31); Mean Corpuscular Volume 92 fL (80-97); Mean Platelet Volume 6.7 fL (7.4-10.4); Platelet Count 394 10^3/uL (150-450); Red Blood Count 3.45 10^6 /uL (3.70-4.87); Red Cell Distribution Width 14 % (10-15); White Blood Count 12.6 10^3/uL (3.5-10.8)
[2020-12-27 11:23] LABS: Calcium 7.9 mg/dL (8.6-10.3); EGFR African American 90.3 (>60); EGFR Non-African American 74.6 (>60); Magnesium 1.2 mg/dL (1.9-2.7); Potassium 3.6 mmol/L (3.5-5.0)
[2020-12-27] MEDS ORDERED: Magnesium Sulf 4 GM/100 ML IV 4,000 MG/100 ML BAG IVPB ONE (15:30)
[2020-12-27] MEDS: Enoxaparin 40 MG/0.4 ML SYR SUBCUT SCH (15:49)
[2020-12-27] MEDS: NS 0.9% 1000 ml BAG 1,000 ML IV SCH (15:50)
[2020-12-27 21:59] LABS: Troponin I 0.04 ng/mL (<0.03)
[2020-12-28 01:14] LABS: Troponin I 0.05 ng/mL (<0.03)
[2020-12-28] MEDS: Meropenem 1 GM PREMIX(*) 1 GM/50 ML BAG IV SCH ×3 (01:18→17:06)
[2020-12-28] MEDS: NS 0.9% 1000 ml BAG 1,000 ML IV SCH (03:03)
[2020-12-28 07:40] LABS: ABS Eosinophils 0.1 10^3/ul (0-0.6); ABS Lymphocytes 0.8 10^3/ul (1.0-4.8); ABS Monocytes 0.6 10^3/ul (0-0.8); ABS Neutrophils 9.6 10^3/ul (1.5-7.7); Eosinophil % 0.5 %; Hematocrit 31 % (35-47); Hemoglobin 10.7 g/dL (12.0-16.0); Lymphocyte % 7.5 %; Mean Corpuscular HGB Conc 35 g/dL (31-36); Mean Corpuscular Hemoglobin 31 pg (27-31); Mean Corpuscular Volume 91 fL (80-97); Mean Platelet Volume 6.5 fL (7.4-10.4); Platelet Count 378 10^3/uL (150-450); Red Blood Count 3.42 10^6 /uL (3.70-4.87); Red Cell Distribution Width 14 % (10-15); White Blood Count 11.1 10^3/uL (3.5-10.8)
[2020-12-28 07:56] LABS: Anion Gap 10 mmol/L (2-11); Blood Urea Nitrogen 14 mg/dL (6-24); CO2 Carbon Dioxide 16 mmol/L (22-32); Calcium 7.6 mg/dL (8.6-10.3); Chloride 103 mmol/L (101-111); EGFR African American 96.1 (>60); EGFR Non-African American 79.4 (>60); Glucose 194 mg/dL (70-100); Magnesium 1.9 mg/dL (1.9-2.7); Potassium 3.7 mmol/L (3.5-5.0); Sodium 129 mmol/L (135-145)
[2020-12-28] MEDS: Mometasone/Formoter 200/5 MDI INH SCH ×2 (08:07→20:35)
[2020-12-28] MEDS: Nicotine PATCH 21 MG/24 HR PATCH TRANSDERM SCH (08:55)
[2020-12-28] MEDS: Aspirin EC 81 mg TAB.EC (enteric coated) PO SCH (08:55)
[2020-12-28 11:30] LABS: Troponin I 0.04 ng/mL (<0.03)
[2020-12-28] MEDS: Enoxaparin 40 MG/0.4 ML SYR SUBCUT SCH (17:06)
[2020-12-29] MEDS: Meropenem 1 GM PREMIX(*) 1 GM/50 ML BAG IV SCH ×3 (01:19→17:40)
[2020-12-29 08:24] LABS: ABS Lymphocytes 0.7 10^3/ul (1.0-4.8); ABS Monocytes 0.5 10^3/ul (0-0.8); ABS Neutrophils 8.2 10^3/ul (1.5-7.7); Eosinophil % 0.5 %; Hematocrit 33 % (35-47); Hemoglobin 11.6 g/dL (12.0-16.0); Lymphocyte % 7.4 %; Mean Corpuscular HGB Conc 35 g/dL (31-36); Mean Corpuscular Hemoglobin 32 pg (27-31); Mean Corpuscular Volume 91 fL (80-97); Mean Platelet Volume 6.6 fL (7.4-10.4); Platelet Count 440 10^3/uL (150-450); Red Blood Count 3.64 10^6 /uL (3.70-4.87); Red Cell Distribution Width 14 % (10-15); White Blood Count 9.5 10^3/uL (3.5-10.8)
[2020-12-29 08:31] LABS: Calcium 8.1 mg/dL (8.6-10.3); EGFR African American 81.5 (>60); EGFR Non-African American 67.4 (>60); Magnesium 1.7 mg/dL (1.9-2.7); Potassium 3.8 mmol/L (3.5-5.0)
[2020-12-29] MEDS: Aspirin EC 81 mg TAB.EC (enteric coated) PO SCH (09:30)
[2020-12-29] MEDS: Nicotine PATCH 21 MG/24 HR PATCH TRANSDERM SCH (09:34)
[2020-12-29] MEDS: Nystatin TOP POWDER 15 GM BTL TOPICAL SCH ×2 (09:34→22:55)
[2020-12-29] MEDS: Mometasone/Formoter 200/5 MDI INH SCH ×2 (12:22→19:49)
[2020-12-29] MEDS: Enoxaparin 40 MG/0.4 ML SYR SUBCUT SCH (16:36)
[2020-12-30] MEDS: Meropenem 1 GM PREMIX(*) 1 GM/50 ML BAG IV SCH ×2 (01:57→10:12)
[2020-12-30] MEDS: Mometasone/Formoter 200/5 MDI INH SCH (07:21)
[2020-12-30] MEDS: Aspirin EC 81 mg TAB.EC (enteric coated) PO SCH (08:22)
[2020-12-30] MEDS: Nicotine PATCH 21 MG/24 HR PATCH TRANSDERM SCH (08:23)
[2020-12-30] MEDS: Nystatin TOP POWDER 15 GM BTL TOPICAL SCH (09:00)
[2020-12-30 09:31] VITALS: BP 142/57
== END 2020-12-30 11:27 | DRG 871 ==
LOC: ED 19:05 → SUATTDRO 21:45 → MEDTELE 21:45
PROVIDERS: ADMIT Internal Medicine; ATTEND Hospitalist